=== PATIENT | female | born 1975 | race Caucasian/White ===

== ENCOUNTER 2023-07-22 15:31 | Emergency (ER) | payer MEDICAID ==
[~2023-07-22] VITALS: Ht 165.1 cm; Wt 99.8 kg
[2023-07-22] MEDS ORDERED: ACET-2605 PO (18:34)
[2023-07-22] MEDS ORDERED: NAPR-1164 PO (18:34)
[2023-07-22 18:55] VITALS: BP 148/72; TEMP 98.4; O2SAT 100
== END 2023-07-22 18:56 | disposition home or self-care (01) ==
LOC: ER 15:35
DX: M17.31 Unilateral post-traumatic osteoarthritis, right knee (principal)
CPT/HCPCS: 73564-TC